=== PATIENT | female | born 1990 | race Caucasian/White ===

== ENCOUNTER 2017-11-29 19:42 | Emergency (ER) | payer SELFPAY ==
[~2017-11-29] VITALS: Ht 160 cm; Wt 56.7 kg
[~2017-11-29 19:42] MED LIST: IBUPROFEN600 MG PO; NORCO 5-325 TA1 EACH PO; OMEPRAZOLE20 MG PO; PRENATAL-FOLIC1 EACH PO; VICODIN 5-5001 EACH PO
== END 2017-11-29 23:01 | disposition home or self-care (01) ==
LOC: ED 19:42
DX: F11.23 Opioid dependence with withdrawal (principal); F17.200 Nicotine dependence, unspecified, uncomplicated; Z87.891 Personal history of nicotine dependence
CPT/HCPCS: 80053; 81001; 83690; 84703; 85025; 96374; 99284; J2405; J7030

== ENCOUNTER 2018-04-04 10:46 | Emergency (ER) | payer OTHER ==
[~2018-04-04] VITALS: Ht 160 cm; Wt 56.7 kg
== END 2018-04-04 11:21 | disposition home or self-care (01) ==
LOC: ED 10:46
DX: M25.561 Pain in right knee (principal)

== ENCOUNTER 2020-01-03 17:49 | Emergency (ER) | payer OTHER ==
[~2020-01-03] VITALS: Ht 160 cm; Wt 56.7 kg
== END 2020-01-03 19:40 | disposition home or self-care (01) ==
LOC: ED 17:49
DX: R55 Syncope and collapse (principal); S06.0X9D Concussion with loss of consciousness of unspecified duration, subsequent encounter; W22.8XXD Striking against or struck by other objects, subsequent encounter; F17.200 Nicotine dependence, unspecified, uncomplicated
CPT/HCPCS: 80053; 81001; 84703; 85025; 99284

== ENCOUNTER 2021-02-27 20:25 | Emergency (ER) | payer OTHER ==
[~2021-02-27] VITALS: Ht 160 cm; Wt 54.4 kg
[2021-02-27] MEDS ORDERED: ARIPIPRAZOLE5 MG PO (20:38)
[2021-02-27] MEDS ORDERED: ZIPRASIDONE HCL40 MG PO (20:39)
[2021-02-27] MEDS ORDERED: HYDROXYZINE HCL25 MG PO (20:39)
[2021-02-27] MEDS ORDERED: PROTONIX40 MG PO (21:59)
--- NOTE | 2021-03-01 18:18 | EKG ---
[facility] [address] [facility] [place], [place] [address] Signed Sinus tachycardia Otherwise normal ECG No previous ECGs available Confirmed by PATRICIA MORAES MD ([id number] on 03/01/2021 6:18:10 PM Electronically Signed By: PATRICIA MORAES MD 03/01/211817 PATIENT NAME: FELIX LARIOS Electrocardiogram DATE OF : 89 PHYSICIAN: PATRICIA MORAES MD REPORT #: [id number] REPORT IS CONFIDENTIAL AND NOT TO BE RELEASED WITHOUT AUTHORIZATION
== END 2021-02-27 22:45 | disposition home or self-care (01) ==
LOC: ED 20:25
DX: R07.2 Precordial pain (principal); F17.200 Nicotine dependence, unspecified, uncomplicated; Z79.899 Other long term (current) drug therapy
CPT/HCPCS: 71045; 80053; 83735; 84484; 85025; 85379; 93005; 93010; 96374; 99285-25; C9113

== ENCOUNTER 2021-11-03 06:25 | Inpatient (IN) | payer OTHER ==
[~2021-11-03] VITALS: Ht 165.1 cm; Wt 71.7 kg
[~2021-11-03 06:25] MED LIST changes: +ARIPIPRAZOLE5 MG PO; +HYDROXYZINE HCL25 MG PO; +PROTONIX40 MG PO; +ZIPRASIDONE HCL40 MG PO
[2021-11-03] MEDS ORDERED: PRENATAL TABLE1 EAC3 PO (07:27)
[2021-11-03] MEDS ORDERED: IRON325 M1 PO (07:28)
--- NOTE | 2021-11-03 09:54 | PR ---
[facility] [address] [facility] [place], [place] [address] Signed Progress Notes IP Datetime Report Generated by JORDY: 11/03/2021 09:54 PROGRESS NOTES: [id number] Impression: Reassuring Heart Rate Procedures: Artificial ROM; Sterile Vag Exam Plan: Continue Present Management Other Plans: postion changes VITAL SIGNS: [id number] Vital Signs: Reviewed; Within Normal Limits EXAM: [id number] Dilatation: 3.5 Effacement: 90 Station: -3 Contractions: q 1.5 to 2 min MEMBRANES: [id number] Comments: Comfortable after epidural. Continued light bleeding. Accel with exam is reassuring but will need continued close observation. FETUS A: [id number] FHR Baseline: 140 Variability: Moderate 6-25bpm Accelerations: None Decelerations: None FHR Category: Category II Presentation: Vertex Comments on Fetus A: reassuring with variability only FETUS B: [id number] Signing Physician: Trista Walls MD Copies: ~ *Electronically Signed* 11/03/21 0954 TRISTA WALLS MD PATIENT NAME: HARRIETFELIX GOYAL PROGRESS NOTE DATE OF : [birth year] PHYSICIAN: TRSITA WALLS MD RPT #: [id number] REPORT IS CONFIDENTIAL AND NOT TO BE RELEASED WITHOUT AUTHORIZATION
--- NOTE | 2021-11-04 07:17 | PR ---
[facility] [address] [facility] [place], [place] [address] Signed PP Progress Notes Datetime Report Generated by CPMaren: 11/04/2021 07:17 SUBJECTIVE: [id number] Pain: Within Normal Limits Nausea/Vomiting: Denies Vital Signs: [id number] Vital Signs: Reviewed; Within Normal Limits EXAM: Ongoing Cardiovascular: Not Done Respiratory: Not Done Abdomen/Uterus: Abnormal Lochia: Normal Vulva/Perineum: Not Done Breasts: Not Done CVA Tenderness: Not Done Extremities: Normal Incision: Not Applicable Progress: Normal Exam Comments: Fundus firm, NT @ U-2. H/H 10.8/32.5, WBC 11.4, plat 169k IMPRESSION/PLAN/PROCEDURES: [id number] Impression: Normal Progression Plan: Discharge Procedures: Rhogam Progress Notes: Doing well. She desires D/C. Signing Physician: Trista Walls MD Copies: ~ *Electronically Signed* 11/04/21716 TRISTA WALLS MD PATIENT NAME: FELIX LARIOS PROGRESS NOTE DATE OF : [birth year] PHYSICIAN: TRISTA WALLS MD RPT #: [id number] REPORT IS CONFIDENTIAL AND NOT TO BE RELEASED WITHOUT AUTHORIZATION
--- NOTE | 2021-11-05 15:09 | PATH ---
[facility] [address] [place], [place] [address] Signed SPECIMEN(S): A PLACENTA SPECIMEN SOURCE: A. PLACENTA CLINICAL HISTORY: Mother's age: 31. OB history: A0. Gestational age: 39 and 3. 's weight: 7 lbs. score: 8/9. Rh B negative (Rhogam yes). Antibody screen: Negative. Maternal serologies: Rubella immune, RPR reactive, GBS negative. Specific issues of concern: History of COVID September 2021, marginal abruption. FINAL PATHOLOGIC DIAGNOSIS: Placenta: - Mature 489 gm placenta (approximately 50th percentile for estimated gestational age) with three-vessel umbilical cord. - Diffuse acute chorioamnionitis. - Negative for significant funisitis. - Villous and perivillous fibrin deposition and rare calcification. - Negative for significant placental disc infarction. JVR:[facility]:C2NR MICROSCOPIC EXAMINATION: Histologic sections of all submitted blocks are examined by light microscopy. These findings, together with the gross examination, support the pathologic diagnosis. GROSS DESCRIPTION: The specimen, labeled "SP, placenta," is received fresh and placed in formalin and consists of a vincent discoid placenta with the following parameters: Umbilical cord: Insertion eccentric, measurement 27 x 1.1 cm; trivascular. Cord coiling index (per 10 cm): 4. Lesions: Not grossly identified. Membranes: Insertion site: Marginal, martino/translucent, rupture site unremarkable. Intact. Other: Not grossly identified. Chorionic Plate: Normal radiating vascular pattern, blue-purple and shiny. Lesions: Not grossly identified. Other: Not grossly identified. Maternal Surface: Normal cotyledons, intact. Lesions: Not grossly identified. Measurement: 21 x 18 x 1.3 cm. Weight (trimmed): 489 grams. Cut Surface: Maroon and spongy. Lesions: Not grossly identified. Basal plate fibrin measures 0.1 cm in thickness. Other Findings: Not grossly identified. PATIENT NAME: FELIX LARIOS PATHOLOGY DATE OF : [birth year] REPORT #: [id number] PHYSICIAN: [facility] PCP: NO PRIMARY CARE PHYSICIAN REPORT IS CONFIDENTIAL AND NOT TO BE RELEASED WITHOUT AUTHORIZATION [facility] [address] [place], [place] [address] Signed Cassette Summary: (A1) Membranes and umbilical cord (A2) Placenta parenchyma (A3) Placenta parenchyma (A4) Placenta parenchyma JS (under the direct supervision of a pathologist) The Gross Description was prepared using a voice recognition system. The report was reviewed for accuracy; however, sound-alike word errors, addition and/or deletions may occur. If there is any question about this report, please contact Client Services. PERFORMING LABORATORY: The technical component was performed by [facility], [address] [place] [id number] (CLIA# [id number]). Professional interpretation was performed by [facility] - [facility], [address] [place] [address], [place] [address] (CLIA#: [id number]). Diagnostician: Buddy Calle MD Pathologist Electronically Signed 11/05/2021 Copies: ~ PATIENT NAME: FELIX LARIOS PATHOLOGY DATE OF : [birth year] REPORT #: [id number] PHYSICIAN: [facility] PCP: NO PRIMARY CARE PHYSICIAN REPORT IS CONFIDENTIAL AND NOT TO BE RELEASED WITHOUT AUTHORIZATION
== END 2021-11-04 11:45 | disposition home or self-care (01) | DRG 807 ==
LOC: FBCO 06:25 → FBC 06:45 → FBCO 11-07 13:13
PROVIDERS: ADMIT Obstetrics & Gynecology; ATTEND Obstetrics & Gynecology
PROC: 10E0XZZ Delivery of Products of Conception, External Approach (ICD-10-PCS; principal; 2021-11-03)
PROC: 0KQM0ZZ Repair Perineum Muscle, Open Approach (ICD-10-PCS; 2021-11-03)
PROC: 10907ZC Drainage of Amniotic Fluid, Therapeutic from Products of Conception, Via Natural or Artificial Opening (ICD-10-PCS; 2021-11-03)
PROC: 3E0234Z Introduction of Serum, Toxoid and Vaccine into Muscle, Percutaneous Approach (ICD-10-PCS; 2021-11-03)
DX: O45.93 Premature separation of placenta, unspecified, third trimester (principal); Z37.0 Single live birth; Z3A.39 39 weeks gestation of pregnancy; O70.1 Second degree perineal laceration during delivery; O99.334 Smoking (tobacco) complicating childbirth; F17.210 Nicotine dependence, cigarettes, uncomplicated; O26.893 Other specified pregnancy related conditions, third trimester; Z67.21 Type B blood, Rh negative; O99.03 Anemia complicating the puerperium; D64.89 Other specified anemias
CPT/HCPCS: 01960; 36415; 83030; 85027; 86850; 86900; 86901; 88307; A9270; J2590; J2790; J7121